=== PATIENT | male | born 1955 | race Caucasian/White ===

== ENCOUNTER 2016-11-23 14:02 | Emergency (ER) | payer OTHER ==
[~2016-11-23] VITALS: Ht 175.3 cm; Wt 81.6 kg
[2016-11-23] MEDS ORDERED: TDAP [DIPH/PERTUSSIS/TET] 0.5 ML VIAL IM ONE ×2 (14:24→14:30)
[2016-11-23 14:28] VITALS: BP 126/81
== END 2016-11-23 14:38 | disposition home or self-care (01) ==
LOC: ER 14:06
DX: Z00.8 Encounter for other general examination (principal)
CPT/HCPCS: 90715; A4606; Z7610